=== PATIENT | female | born 1960 | race Hispanic/Latino ===

== ENCOUNTER 2018-10-01 07:06 | Emergency (ER) | payer OTHER ==
[2018-10-01] MEDS ORDERED: ACETAMINOPHEN 325 MG TAB ONE (07:25)
[2018-10-01 07:35] LABS: APPEARANCE,URINE CLEAR (CLEAR); BILIRUBIN,URINE NEGATIVE (NEGATIVE); COLOR,URINE YELLOW (YELLOW); GLUCOSE, URINE (UA) NEGATIVE (NEGATIVE); KETONES,URINE NEGATIVE (NEGATIVE); LEUKOCYTE ESTERASE ,URINE NEGATIVE (NEGATIVE); NITRATE,URINE NEGATIVE (NEGATIVE); OCCULT BLOOD,URINE NEGATIVE (NEGATIVE); PROTEIN,URINE NEGATIVE (NEGATIVE); UROBILINOGEN,URINE 0.2 mg/dL (0.2-1.0)
== END 2018-10-01 08:13 | disposition home or self-care (01) ==
LOC: EDH 07:06
DX: M54.5 Low back pain (principal); I10 Essential (primary) hypertension
CPT/HCPCS: 81003

== ENCOUNTER 2018-11-23 08:15 | Emergency (ER) | payer SELFPAY ==
[2018-11-23 09:04] LABS: RAPID GROUP A STREP NEGATIVE (NEGATIVE)
[2018-11-23] MEDS ORDERED: GUAIFENESIN SUGAR-FREE 100 MG/5 ML UDCUP ONE (09:16)
== END 2018-11-23 09:26 | disposition home or self-care (01) ==
LOC: EDH 08:15
DX: J06.9 Acute upper respiratory infection, unspecified (principal); I10 Essential (primary) hypertension; Z98.890 Other specified postprocedural states
CPT/HCPCS: 87804; 87880